=== PATIENT | male | born 1985 | race Caucasian/White ===

== ENCOUNTER 2019-03-09 23:40 | Day surgery (SDC) | payer SELFPAY ==
[2019-03-09 23:40] VITALS: BP 128/73; PULSE 72
[~2019-03-09 23:40] MED LIST: AMBIEN 10MG10 MG PO; CARAFATE 1GM1 G PO; LITHIUM 30300 MG/CAP PO; NO HOME MEDICATIONS; PRIL40 PO; PROZAC 10MG10 MG PO; PROZAC 20MG20 MG PO; ZOFRAN ODT4 MG PO
--- NOTE | 2019-03-09 23:40 | NUR ---
PATIENT ADMITED INTO ROOM 326 [facility] WITH FOOD BOLUS STUCK IN ESOPHAGUS. PATIENT OCCATIONALLY GAG AND COUGHS. SPITS UP CLEAR SPUTUM BUT CAN'T GET STEAK TO MOVE. PATIENT REPORTS THIS HAS HAPPEND IN THE PAST. PATIENT IS ABLE TO TALK. REPORTS HE HAS BEEN STRUGGLING WITH THIS FOOD BOLUS FOR OVER 5 HOURS NOW AND IS EXHAUSTED. OR NOTIFIED PATIENT IS HERE. IV FLUIDS STARTED INTO LEFT AC IV THAT WAS STARTED AT [facility]. NPO. CONSENT ON CHART.
[2019-03-10 01:15] VITALS: BP 104/61; PULSE 79; TEMP 98.8
[2019-03-10 01:35] VITALS: BP 106/63; PULSE 78
[2019-03-10 01:50] VITALS: BP 122/76; PULSE 74
[2019-03-10 02:05] VITALS: BP 123/89; PULSE 79
--- NOTE | 2019-03-10 02:15 | NUR ---
PATIENT DISCHARGING HOME VIA AMBULATORY TO PERSONAL VEHICLE WITH . PATIENT MEET DISCHARGE CRITERIA, TOLERATED LIQUIDS AND POPSICLE WELL. VSS. NO C/O PAIN. PATIENT AWAKE AND READY TO DISCHARGE. GAVE INSTURCTIONS AND ANSWERED QUESTIONS/CONCERNS. IV DC'D, COVERED SITE WITH GAUZE & BANDAID. PATIENT DISCHARGED.
== END 2019-03-10 04:15 | disposition home or self-care (01) ==
LOC: SURG 23:40 → SDCO 23:40
DX: T18.128A Food in esophagus causing other injury, initial encounter (principal); K25.9 Gastric ulcer, unspecified as acute or chronic, without hemorrhage or perforation; F10.11 Alcohol abuse, in remission
CPT/HCPCS: OP; J2704

== ENCOUNTER 2021-05-05 00:34 | Emergency (ER) | payer SELFPAY ==
[~2021-05-05] VITALS: Ht 175.3 cm; Wt 84.1 kg
[2021-05-05 00:55] VITALS: TEMP 97.2
[2021-05-05 03:21] VITALS: BP 147/70; PULSE 76
== END 2021-05-05 03:21 | disposition home or self-care (01) ==
LOC: COL.ER 00:34
DX: S52.601A Unspecified fracture of lower end of right ulna, initial encounter for closed fracture (principal); F17.210 Nicotine dependence, cigarettes, uncomplicated; W22.8XXA Striking against or struck by other objects, initial encounter
CPT/HCPCS: J1885